=== PATIENT | male | born 1975 | race Caucasian/White ===

== ENCOUNTER 2022-06-03 13:33 | Emergency (ER) | payer OTHER ==
[2022-06-03] MEDS ORDERED: AMOX TR-K CLV1 EAC4 PO (14:38)
[2022-06-03] MEDS ORDERED: MEDROL 4MG DOSEP4 MG PO (14:38)
== END 2022-06-03 15:42 | disposition home or self-care (01) ==
LOC: FER 13:33
DX: J01.90 Acute sinusitis, unspecified (principal); B96.89 Other specified bacterial agents as the cause of diseases classified elsewhere; E11.9 Type 2 diabetes mellitus without complications; F17.290 Nicotine dependence, other tobacco product, uncomplicated; Z79.84 Long term (current) use of oral hypoglycemic drugs; Z79.899 Other long term (current) drug therapy
CPT/HCPCS: 99283; J1100